=== PATIENT | female | born 1960 ===

== ENCOUNTER 2021-08-19 09:15 | Inpatient (IN) | payer OTHER ==
[~2021-08-19] VITALS: Ht 160 cm; Wt 70.3 kg
[2021-08-19] MEDS ORDERED: PREMPRO 0.3 MG1 EACH PO (11:04)
[2021-08-19] MEDS ORDERED: PRILOSEC OTC20 MG PO (11:04)
[2021-08-19] MEDS ORDERED: CLONAZEPAM0.5 MG PO (11:05)
[2021-08-19] MEDS ORDERED: EFFEXOR XR75 MG PO (11:05)
[2021-08-20] MEDS ORDERED: OMEPRAZOLE20 MG (11:02)
[2021-08-20] MEDS ORDERED: RIZATRIPTAN10 MG (11:03)
== END 2021-08-22 18:00 | DRG 470 ==
LOC: SURH 08-20 06:00 → O/R 08-20 06:00 → SURG 08-20 09:15 → NUR 08-20 09:15 → SURH 08-20 10:55 → SURG 08-20 16:45 → SURH 08-22 18:00
PROVIDERS: ADMIT Orthopaedic Surgery; ATTEND Orthopaedic Surgery
PROC: 0SRD0J9 Replacement of Left Knee Joint with Synthetic Substitute, Cemented, Open Approach (ICD-10-PCS; principal; 2021-08-20 16:45)
DX: M17.12 Unilateral primary osteoarthritis, left knee (principal); D62 Acute posthemorrhagic anemia; M85.662 Other cyst of bone, left lower leg; M65.862 Other synovitis and tenosynovitis, left lower leg

== ENCOUNTER 2022-11-11 15:00 | Outpatient (CLI) | payer OTHER ==
[~2022-11-11 15:00] MED LIST: CLONAZEPAM0.5 MG PO; EFFEXOR XR75 MG PO; OMEPRAZOLE20 MG; PREMPRO 0.3 MG1 EACH PO; PRILOSEC OTC20 MG PO; RIZATRIPTAN10 MG
== END 2022-11-11 15:13 | disposition home or self-care (01) ==
LOC: RAD 15:00
PROVIDERS: ATTEND Orthopaedic Surgery
DX: M25.561 Pain in right knee (principal); M25.562 Pain in left knee